=== PATIENT | female | born 2005 | race Caucasian/White ===

== ENCOUNTER → 2025-05-01 08:26 | Outpatient (BNVA) | payer OTHER, SELFPAY | PROVIDERS: Visit Provider Podiatrist Foot & Ankle Surgery | DX: M79.671 Pain in right foot (principal); M79.672 Pain in left foot; Z98.890 Other specified postprocedural states | CPT/HCPCS: 73630 ==

== ENCOUNTER 2025-05-15 08:16 | Outpatient (CLI) | payer OTHER, SELFPAY ==
--- NOTE | 2025-05-15 08:28 | XR_ITS ---
WS: [id number] XR foot RT min 3V* [id number] REASON FOR EXAM: pain FINDINGS: Healing osteotomy at the mid to distal first metacarpal. No significant interval change compared to 05/01/2025. No new findings. XR/XR foot RT min 3V* [id number] IMPRESSION: Healing osteotomy as above.
== END 2025-05-15 08:17 | disposition home or self-care (01) ==
LOC: RAD 08:17
PROVIDERS: Visit Provider Podiatrist Foot & Ankle Surgery
DX: Z98.890 Other specified postprocedural states (principal); M79.671 Pain in right foot
CPT/HCPCS: 73630

== ENCOUNTER → 2025-05-22 09:31 | Outpatient (BNVA) | payer OTHER, SELFPAY | PROVIDERS: PCP Family Medicine; Visit Provider Podiatrist Foot & Ankle Surgery | DX: M79.671 Pain in right foot (principal); Z98.890 Other specified postprocedural states | CPT/HCPCS: 73630 ==

== ENCOUNTER → 2025-06-10 14:49 | Outpatient (BNVA) | payer OTHER, SELFPAY | PROVIDERS: PCP Family Medicine; Visit Provider Podiatrist Foot & Ankle Surgery | DX: M79.671 Pain in right foot (principal); M25.572 Pain in left ankle and joints of left foot; S82.52XA Displaced fracture of medial malleolus of left tibia, initial encounter for closed fracture; S93.492A Sprain of other ligament of left ankle, initial encounter; X58.XXXA Exposure to other specified factors, initial encounter | CPT/HCPCS: 73610; 73630 ==